=== PATIENT | female | born 1965 ===

== ENCOUNTER 2016-05-25 17:02 | Inpatient (IN) | payer BC, OTHER ==
[~2016-05-25] VITALS: Ht 165.1 cm; Wt 57.6 kg
[2016-05-27] MEDS ORDERED: THIAMINE HCL 200 MG/2 ML VIAL IM ONE (12:30)
[2016-05-27] MEDS ORDERED: LORAZEPAM 2 MG/1 ML VIAL IM PRN (12:30)
[2016-05-27] MEDS ORDERED: DICYCLOMINE HCL 20 MG TABLET PO PRN (12:30)
[2016-05-27] MEDS ORDERED: MIRALAX 17 GM POWD.PACK PO PRN (12:30)
[2016-05-27] MEDS ORDERED: ONDANSETRON ODT 4 MG TAB.RAPDIS SL PRN (12:30)
[2016-05-27] MEDS ORDERED: MAG HYDROX/AL HYDROX/SIMETH 30 ML LIQUID UDC PO PRN (12:30)
[2016-05-27] MEDS ORDERED: LORAZEPAM 1 MG TABLET PO PRN ×2 (12:30)
[2016-05-27] MEDS ORDERED: ACETAMINOPHEN 325 MG TABLET PO PRN (12:30)
[2016-05-27] MEDS ORDERED: LOPERAMIDE HCL 2 MG CAPSULE PO PRN ×2 (12:30)
[2016-05-27] MEDS ORDERED: MAGNESIUM HYDROXIDE 30 ML LIQUID UDC PO PRN (12:30)
[2016-05-27 13:10] VITALS: BP 97/66
[2016-05-27 13:31] LABS: BASOPHILS % (AUTO) 0.5 % (0.0-2.0); EOSINOPHILS # (AUTO) 0.1 K/uL (0.0-0.7); LYMPHOCYTES # (AUTO) 1.1 K/uL (0.8-4.8); MONOCYTES # (AUTO) 0.3 K/uL (0.1-1.30)
[2016-05-27 13:32] LABS: EOSINOPHILS % (AUTO) 1.7 % (0.0-7.0); HEMATOCRIT 31.6 % (37.0-47.0); HEMOGLOBIN 10.3 g/dL (12.0-16.0); LYMPHOCYTES % (AUTO) 21.3 % (20.5-51.5); MEAN CORPUSCULAR HEMOGLOBIN 28.9 uug (27.0-31.0); MEAN CORPUSCULAR HGB CONC 33 g/dL (32.0-37.0); MEAN CORPUSCULAR VOLUME 88.6 fL (81.0-99.0); MONOCYTES % (AUTO) 5.7 % (0.0-11.0); NEUTROPHILS # (AUTO) 3.7 K/uL (1.8-8.9); NEUTROPHILS % (AUTO) 70.8 % (38.5-71.5); PLATELET COUNT (AUTO) 328 K/uL (150-450); RED BLOOD CELL COUNT(AUTO) 3.57 MIL/uL (4.20-5.40); RED CELL DISTRIBUTION WIDTH 15.4 % (11.5-14.5); WHITE BLOOD COUNT (AUTO) 5.2 K/uL (4.0-11.2)
[2016-05-27 13:51] LABS: ALBUMIN 3.1 g/dL (3.4-5.0); BILIRUBIN,TOTAL 0.2 mg/dL (0.2-1.0); CALCIUM 8.2 mg/dL (8.5-10.1); CREATININE 0.7 mg/dL (0.6-1.3); MAGNESIUM 1.8 mg/dL (1.8-2.4); POTASSIUM 3.9 mmol/L (3.5-5.1); TOTAL PROTEIN, SERUM 6.1 g/dL (6.4-8.2)
[2016-05-27 13:56] LABS: *AMPHETAMINE, URINE POSITIVE (NEGATIVE); *BARBITURATE, URINE NEGATIVE (NEGATIVE); *CANNABINOID, URINE POSITIVE (NEGATIVE); *COCCAINE, URINE NEGATIVE (NEGATIVE); *OPIATE, URINE NEGATIVE (NEGATIVE); *PHENCYCLIDINE SCREEN,URINE NEGATIVE (NEGATIVE)
[2016-05-27 13:59] LABS: THYROID STIMULATING HORMONE 0.151 mIU/mL (0.358-3.740)
[2016-05-27] MEDS: FOLIC ACID 1 MG TABLET PO SCH (14:00)
[2016-05-27 14:09] LABS: HIV-1 p24 ANTIGEN NON REACTIVE (NONREACTIVE); HIV-1/2 ANTIBODY NON REACTIVE (NONREACTIVE)
--- NOTE | 2016-05-27 14:30 | NUR ---
ADMISSION NOTE Pt is a 51 yr old female, presenting herself to [facility] for alcohol use. Pt appears to be highly intoxicated upon admission, slurring her words and unable to stay awake. Pt was accompanied by her during intake. Per , Pt drank 400cc of Vodka and consumed an marijuana "edible" before arriving. Pt was assessed by Dr. Jorgensen and Nurse. Pt is alert to person, place, time and situation but thought process is delayed. Per Dr. Jorgensen, will have pt on 1:1 for unsteady gait. Pt arrived on the unit at 1238. Body check was complete. Pt is observed with 2 dry scabs on right lower leg. No treatment is necessary. No picture was taken. VS were WNL. Pt is full code, Vegan diet and NKA. Pt reports of PMH of Depression, Anxiety and Gastric Bypass, and Right arm Fx. Pt was not able to recall other PMH due to increase intoxication. Pt denies any Hx of Seizures. Pt denies any PCP. No home medication was brought from home. Pt was not able to verbalize details of substance use due to increase intoxication. Per pt's , States she been drinking daily for 11 years but has increased to 750ml of vodka daily for the past month. Per , pt last drank on 05/27/16 and consumed 400cc of vodka prior to coming into intake. Per pt's , she would consume marijuana "edibles". Pt states of taking "edibles occasionally". Per , last use was on 05/27/16, Pt consumed an marijuana "edible" prior to admission". Urine Drug screen was positive for Amphetamines and Benzo. 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 Pt was unable to state first use or amount taking. Pt states, "can not recall". Pt states of using Adderall 20mg PO a day for the past 5 years. Last use was on 05/25/16, pt states of taking 20mg PO. Pt is unable to complete admission assessment during this time due to increase intoxication. Dr. Jorgensen is aware. Pt remains on 1:1 for unsteady gait. Pt is to start on 5 day Ativan taper on 4/2/17. New order was faxed over to pharmacy. Will continue to monitor and continue with admission assessment. Addendum: 05/27/16 at 1826 by CLYDE WIGGINS LVN CLARIFICATION pt is noted with 2 dry scabs on left lower leg.
[2016-05-27 16:00] VITALS: BP 120/77
[2016-05-27] MEDS ORDERED: GABAPENTIN 300 MG CAPSULE PO SCH (17:00)
[2016-05-27] MEDS: HYDROXYZINE PAMOATE 25 MG CAPSULE PO PRN (17:03)
[2016-05-27] MEDS: IBUPROFEN 400 MG TABLET PO PRN (17:03)
--- NOTE | 2016-05-27 17:03 | NUR ---
PRN'S MEDICATION GIVEN Pt c/o right arm pain and mild anxiety. Vistaril 50mg PO PRN and Motrin 400mg PO PRN was given as ordered. Medication so well. Will continue to monitor.
--- NOTE | 2016-05-27 18:33 | NUR ---
CLARIFICATION Pt stated of first using Xanax in 2003 and was prescribed 0.25mg. Pt stated within 9 months she was consuming 30tabs of 0.25mg of Xanax daily. Per pt, went into rehab for 23 days. Pt stated she would now occasionally take Xanax prior to surgical procedures done on her right hand and stated her would control the dose. Pt stated, her gave her 2 tabs of 0.25mg on 05/27/16 prior to intake for anxiety. Dr. Jorgensen is made aware.
--- NOTE | 2016-05-27 19:10 | NUR ---
END OF SHIFT NOTE Pt is a 51 yr old female, AA&Ox3. Pt was admitted for ETOH Dependence and will start on 5 day Ativan taper on 05/28/16. Pt received Motrin PRN and Vistaril 50mg at 1703 for pain and anxiety. Medication was effective. Pt is on fall and seizure precautions. Pt remains on 1:1 for unsteady gait. Last CIWA score was 3 at 1600. No acute distress noted. Safety precautions observed. Call light is within reach.
[2016-05-27 20:00] VITALS: BP 115/76
--- NOTE | 2016-05-27 20:00 | NUR ---
1999 Patient received sleeping soundly in low semi-dao's position of comfort. Patient aroused for nurse assess and vital signs. Patient respond to nurse's greeting and introduction, with very drowsy, soft, delayed, "Hi, I'm okay". Patient unable to keep eyes open for very long, while nurse is speaking to her or asking her questions. Patient is oriented to person, personal situation and vaguely to place. Patient reoriented to day, date and time. Patient's color is pink and her skin is warm, dry and intact. Her lung sounds are clear bilaterally and active bowel sounds are noted X 4 abdominal Quads, per auscultation. Patient can move all her extremities fully WNL, though slowly. Patient denies any pain or other discomforts and she voices no requests or c/o anything at this time. Vital signs are: 98-78-14 115/76, O2 Sat 98%, CIWA 2. Sips fluids taken. 1 to 1 staff at bedside for patient's safety. Fall/Seizure precautions continue. Patient was admitted today for: Alcohol,Xanax, Adderall and Marijuana withdrawal and she will be starting a 5-Day Ativan medication taper tomorrow per D.O. Bed is locked and in lowest position, bed rails are up X 2 and call light at patient's right hand. Will continue to monitor.
[2016-05-27] MEDS: GABAPENTIN 300 MG CAPSULE PO SCH (20:34)
[2016-05-27] MEDS ORDERED: GABAPENTIN 300 MG CAPSULE ONE (20:34)
[2016-05-28] VITALS (7 sets, daily range): BP systolic 121–147; BP diastolic 77–104
[2016-05-28] MEDS: IBUPROFEN 400 MG TABLET PO PRN (05:55)
--- NOTE | 2016-05-28 05:55 | NUR ---
PRN MEDICATION: Prn Motrin 400 mg p.o. given per patient's request for her c/o right jaw discomfort, 5/10 pain scale.
[2016-05-28] MEDS: HYDROXYZINE PAMOATE 25 MG CAPSULE PO PRN (05:56)
--- NOTE | 2016-05-28 05:56 | NUR ---
PRN MEDICATION: Prn Vistaril 50 mg p.o. given per patient's c/o increasing anxiety.
--- NOTE | 2016-05-28 06:30 | NUR ---
0630 Patient slept a total of 7 hours and she had 2 voids and no stools at bathroom. Total intake was 827 ml p.o. Patient more awake and alert when out of bed, though she still required minimal assist to bathroom. Patient took fluids ad vikash and had vegan snacks this shift and she went to [facility] for cigarettes via wheelchair with 1 to 1 staff. Prn medications given noted separately per floor protocol. V/SS afebrile, COWS 2. No blood draw or B/P to be done on right arm due to extensive surgical work done previously on this arm. Patient is presently resting comfortably with eyes closed and respirations regular, unlabored at 14. Patient is in stable condition at this time.
--- NOTE | 2016-05-28 06:56 | NUR ---
REASSESSMENT PRN MEDICATIONS: Patient is resting comfortably with eyes closed and respirations quiet, even, unlabored at 14.
--- NOTE | 2016-05-28 07:50 | NUR ---
START OF SHIFT Rcvd client in bed, she sounds asleep, easy to arouse, RR 16. Sitter at bedside for fall precautions due to unsteady gait, will continue to monitor. She is a 51 yr old female admitted to [facility] for alcohol withdrawal. She is placed on 5 day Ativan taper to start today at 0900. She drank 400cc of Vodka and consumed an marijuana "edible" on 05/27/16 before admission @ 1238. 2 dry scabs on right lower leg. No treatment is necessary. Client is full code, Vegan diet and NKA. She reports of PMH of Depression, Anxiety. Past surgical history of Gastric Bypass, and Right arm Fx. She denied any Hx of Seizures. She consumes 750ml of vodka daily for the past month, last consumed 400cc of vodka @ 1100 05/27/16. She consumed marijuana "edibles". last use was on 05/27/16. 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 Adderall 20mg PO a day for the past 5 years. Last use was on 05/25/16, pt states of taking 20mg PO. Fall and seizure precautions./ Bed in lowest position, side rails x 2 up/padded. Call light within reach.
[2016-05-28] MEDS: DOCUSATE SODIUM 250 MG CAPSULE PO SCH (08:44)
[2016-05-28] MEDS: FOLIC ACID 1 MG TABLET PO SCH (08:44)
[2016-05-28] MEDS: GABAPENTIN 300 MG CAPSULE PO SCH ×3 (08:45→21:01)
[2016-05-28] MEDS: LORAZEPAM 1 MG TABLET PO SCH ×4 (08:45→20:58)
[2016-05-28] MEDS: MULTIVITAMINS,THERAPEUTIC TABLET PO SCH (08:45)
[2016-05-28] MEDS: THIAMINE HCL 100 MG TABLET PO SCH (08:45)
[2016-05-28] MEDS ORDERED: 5 DAY TAPER OF LORAZEPAM -SERENITY PROTOCOL PO PRN (09:00)
[2016-05-28] MEDS ORDERED: TUBERCULIN,PURIF.PROT.DERIV. 5 TU/0.1 ML TEST ID ONE (09:00)
--- NOTE | 2016-05-28 15:25 | NUR ---
nursing notes Gabapentin 300mg PO held d/t sedation, notified.
--- NOTE | 2016-05-28 19:31 | NUR ---
END OF SHIFT Endorsed to incoming nurse, client in bed, she sounds asleep, easy to arouse, RR 16. Sitter at bedside for fall precautions due to unsteady gait.Last CIWA 7. She is on Ativan taper, tolerating well. She is a 51 yr old female admitted to [facility] for alcohol withdrawal. She drank 400cc of Vodka and consumed an marijuana "edible" on 05/27/16 before admission @ 1238. 2 dry scabs on right lower leg. No treatment is necessary. Client is full code, Vegan diet and NKA. She reports of PMH of Depression, Anxiety. Past surgical history of Gastric Bypass, and Right arm Fx. She denied any Hx of Seizures. She consumes 750ml of vodka daily for the past month, last consumed 400cc of vodka @ 1100 05/27/16. She consumed marijuana "edibles". last use was on 05/27/16. 4 tabs of Xanax on 05/26/16 to [employer] with anxiety. Adderall 20mg PO a day for the past 5 years. Last use was on 05/25/16, pt states of taking 20mg PO. Fall and seizure precautions./ Bed in lowest position, side rails x 2 up/padded. Call light within reach.
--- NOTE | 2016-05-28 19:55 | NUR ---
START OF SHIFT Received report from day shift nurse. Pt is lying in bed resting with a 1:[address] for safety due to unsteady gait related to ETOH withdrawal. She is a 51 yo female admitted to [facility] on 05/27 for ETOH and BZD dependence with a h/o adderall and marijuana use. She is A&O x3 and ambulatory with assistance. She uses a wheelchair as needed. NKA, full code status, and on a vegetarian diet. She has a PMH of gastric bypass, right arm fracture with multiple surgeries, anxiety, and depression. On admission she admitted to using ETOH 375-750mL per day for 1 month, xanax 0.25mg per day occasionally, adderall 20mg/day, and marijuana 2 joints occasionally. She started a 5 day Ativan taper today. It is working well to manage withdrawal symptoms. She is slightly drowsy and answers questions appropriately. Her skin is moist and she has mild tremors. Fall and seizure precautions in place. Bed is down with call light in reach.
[2016-05-29] VITALS (7 sets, daily range): BP systolic 127–141; BP diastolic 73–96
--- NOTE | 2016-05-29 07:27 | NUR ---
END OF SHIFT Report provided to day shift nurse. Pt is lying in bed resting with a 1:[address] for safety. She is a 51 yo female admitted to [facility] on 05/27 for ETOH and BZD dependence with a h/o adderall and marijuana use. She is A&O x3 and ambulatory. Her gait is unsteady due to withdrawals. She uses a wheelchair as needed. NKA, full code status, and on a vegetarian diet. She has a PMH of gastric bypass, right arm fracture with multiple surgeries, anxiety, and depression. On admission she admitted to using ETOH 375-750mL per day for 1 month, xanax 0.25mg per day occasionally, adderall 20mg/day, and marijuana 2 joints occasionally. She started a 5 day Ativan taper yesterday. No PRN medications administered. Last CIWA was 3. She drank 527mL and slept for 10 hours. Fall and seizure precautions in place. Bed is down with call light in reach.
--- NOTE | 2016-05-29 07:50 | NUR ---
START OF SHIFT NOTE Pt is a 51 yr old female, AA&Ox3. Pt was admitted on 05/27/16 for ETOH Dependence and is on 5 day Ativan taper. Pt is full code, Vegan diet and NKA. Pt reports of PMH of Anxiety, Depression, Gastric bypass and right arm fx. No PRN's were given during the night. Pt slept for 10 hrs. Pt remains on 1:1 for unsteady gait. Pt is in bed resting with respirations even and unlabored. No acute distress noted. Skin is intact, warm and dry to touch. Fine tremor are seen. Pt denies any n/v. Pt is c/o lower back pain 08/05. Encouraged increase fluid intake. Will f/u will eMAR. Pt is on fall and seizure precautions. Safety precautions observed. Call light is within reach.
[2016-05-29] MEDS: THIAMINE HCL 100 MG TABLET PO SCH (08:43)
[2016-05-29] MEDS: MULTIVITAMINS,THERAPEUTIC TABLET PO SCH (08:43)
[2016-05-29] MEDS: FOLIC ACID 1 MG TABLET PO SCH (08:43)
[2016-05-29] MEDS: GABAPENTIN 300 MG CAPSULE PO SCH ×3 (08:43→20:03)
[2016-05-29] MEDS: DOCUSATE SODIUM 250 MG CAPSULE PO SCH (08:43)
[2016-05-29] MEDS: LORAZEPAM 1 MG TABLET PO SCH ×3 (08:44→20:03)
--- NOTE | 2016-05-29 08:45 | NUR ---
ATIVAN HELD Ativan 2mg PO scheduled at 0900 was held due to pt is too sedated. Pt is unable to keep eyes open and slurring her words. Pt remains on 1:1 for unsteady gait. Will continue to monitor.
[2016-05-29] MEDS ORDERED: AMPH20CA3 PO (12:52)
--- NOTE | 2016-05-29 14:20 | NUR ---
ZOFRAN PRN GIVEN Pt c/o nausea. No episodes of vomiting was reported. Zofran 4mg SL PRN was given. Encouraged increase fluid intake. Pt is observed eating lunch and so well. Will continue to monitor.
--- NOTE | 2016-05-29 15:00 | NUR ---
ATIVAN HELD Ativan 2mg as scheduled at 1500 was held due to too sedated and unsteady gait. Pt is observed having difficulty staying awake and nodding in and out. Pt remains 1:1 for unsteady gait. Call light is within reach. Will continue to monitor.
--- NOTE | 2016-05-29 15:20 | NUR ---
PRN RE-ASSESSMENT Zofran PRN was effective. No episodes of nausea or vomiting. Encouraged increase fluid intake. Will continue to monitor.
[2016-05-29] MEDS: HYDROXYZINE PAMOATE 25 MG CAPSULE PO PRN (16:23)
--- NOTE | 2016-05-29 16:23 | NUR ---
VISTARIL PRN GIVEN Pt is c/o anxiety. Vistaril 50mg PO PRN was given as ordered. Medication so well. Encouraged increase fluid intake. Will continue to monitor.
--- NOTE | 2016-05-29 17:23 | NUR ---
VISTARIL PRN RE-ASSESSMENT Vistaril PRN was mildly effective. Pt continue to be observed with episodes of crying. Dr. Martinez is made aware with new order for Seroquel 25mg Q6HPRN. New order was initiated by Dr. Martinez. Will continue to f/u
[2016-05-29] MEDS: QUETIAPINE FUMARATE 25 MG TABLET PO PRN (17:55)
--- NOTE | 2016-05-29 17:55 | NUR ---
SEROQUEL PRN GIVEN Pt continued to be observed with episodes of crying. Pt refused to talk about her feelings. Seroquel 25mg PO PRN was given as ordered. Medication so well. Will continue to monitor.
--- NOTE | 2016-05-29 19:03 | NUR ---
END OF SHIFT NOTE Pt is a 51 yr old female, AA&Ox3. Pt was admitted on 05/27/16 for ETOH Dependence and is on 5 day Ativan taper. Pt is full code, Vegan diet and NKA. Pt reports of PMH of Anxiety, Depression, Gastric bypass and right arm fx. Pt was observed with increase drowsiness in the morning. Ativan 2mg PO as scheduled was held at 0900 and 1500 due to too sedated. MD was made aware. Pt was given Vistaril PRN and Seroquel PRN for episode of crying and anxiety. Medications was effective. Pt is currently in bed resting. Respirations even and unlabored. Pt remains on 1:1 for unsteady gait. Skin is intact, warm and dry to touch. Fine tremor are seen. Pt denies any n/v. Encouraged increase fluid intake. Pt is on fall and seizure precautions. Safety precautions observed. Call light is within reach.
--- NOTE | 2016-05-29 19:55 | NUR ---
START OF SHIFT Received report from day shift nurse. Pt is lying in bed resting with a 1:[address] for safety due to unsteady gait. She is a 51 yo female admitted to [facility] on 05/27 for ETOH and BZD dependence with a h/o adderall and marijuana use. She started a 5 day Ativan taper on 05/28. Pt is A&O x3 and ambulatory with assistance due to unsteady gait r/t ETOH withdrawal. She uses a wheelchair as needed. NKA, full code status, and on a vegetarian diet. She has a PMH of gastric bypass, right arm fracture with multiple surgeries, anxiety, and depression. On admission she admitted to using ETOH 375-750mL per day for 1 month, xanax 0.25mg per day occasionally, adderall 20mg/day, and marijuana 2 joints occasionally. Pt was given Seroquel on day shift and is relaxed in bed. She is responsive to verbal stimulation. Fall and seizure precautions in place. She reports anxiety Bed is down with call light in reach.
[2016-05-29] MEDS: IBUPROFEN 400 MG TABLET PO PRN (20:07)
--- NOTE | 2016-05-29 20:08 | NUR ---
PRN Motrin administration Pt reported headache /. PRN Motrin administered.
--- NOTE | 2016-05-29 21:08 | NUR ---
PRN Motrin reassessment PRN Motrin somewhat effective. Pt reports some relief of headache.
[2016-05-29] MEDS: PANTOPRAZOLE SODIUM 40 MG TABLET.DR PO SCH (22:30)
[2016-05-29] MEDS: diphenhydrAMINE 50 MG CAPSULE PO PRN (22:30)
[2016-05-29] MEDS: CLONIDINE HCL 0.1 MG TABLET PO PRN (22:31)
--- NOTE | 2016-05-29 22:33 | NUR ---
PRN Clonidine, Tylenol, and Benadryl Pt c/o feeling anxious, unable to relax, headache, and unable to fall asleep. CIWA score 6. PRN Clonidine, Tylenol, and Benadryl administered.
--- NOTE | 2016-05-29 23:33 | NUR ---
PRN Clonidine, Tylenol, and Benadryl reassessment PRN Clonidine, Tylenol, and Benadryl effective. Pt is lying in bed resting with eyes closed. Respirations even and unlabored. Bed is down with call light in reach.
--- NOTE | 2016-05-30 | NUR ---
0000 Vitals and CIWA deferred Pt refused to be woken for 0000 Vitals. Respirations even and unlabored. 1:[address] for safety. Bed is down with call light in reach.
--- NOTE | 2016-05-30 04:00 | NUR ---
0400 Vitals and CIWA deferred Pt refused to be woken for 0400 Vitals. Respirations even and unlabored. 1:[address] for safety. Bed is down with call light in reach.
[2016-05-30 06:06] LABS: HCV AB <0.1 s/co ratio (0.0-0.9); HEPATITIS B CORE AB, IgM Negative (Negative); HEPATITIS B SURFACE AG Negative (Negative)
--- NOTE | 2016-05-30 07:16 | NUR ---
END OF SHIFT Report provided to day shift nurse. Pt is lying in bed resting with a 1:[address] for safety due to unsteady gait. She is a 51 yo female admitted to [facility] on 05/27 for ETOH and BZD dependence with a h/o adderall and marijuana use. She started a 5 day Ativan taper on 05/28. Pt is A&O x3 and ambulatory with assistance due to unsteady gait r/t ETOH withdrawal. She uses a wheelchair as needed. NKA, full code status, and on a vegetarian diet. She has a PMH of gastric bypass, right arm fracture with multiple surgeries, anxiety, and depression. On admission she admitted to using ETOH 375-750mL per day for 1 month, xanax 0.25mg per day occasionally, adderall 20mg/day, and marijuana 2 joints occasionally. Pt reported feeling anxious and was mildly agitated. She reported a headache. PRN Clonidine, Benadryl, Motrin, and Tylenol administered. Last CIWA was 6. She drank 880mL and slept 6 hours. Fall and seizure precautions in place. She reports anxiety Bed is down with call light in reach.
--- NOTE | 2016-05-30 07:30 | NUR ---
Start of shift note; Received report from night nurse. Patient is a 51 y/o female admitted on 05/27/16 for ETOH dependence. Patient reported past medical history of depression, anxiety, gastric bypass, right arm fracture with multiple surgeries. Patient is on a full code status, NKA, vegan diet. Patient was placed on 5 day Ativan taper. Patient remained on 1:1 supervision for unsteady gait. Patient's last CIWA is 6. All safety measures secured. Will continue to monitor patient.
[2016-05-30] MEDS: PANTOPRAZOLE SODIUM 40 MG TABLET.DR PO SCH (07:47)
[2016-05-30] MEDS: IBUPROFEN 400 MG TABLET PO PRN ×2 (07:49→20:47)
--- NOTE | 2016-05-30 07:50 | NUR ---
PRN Motrin Pt c/o headache. PRN Motrin administered.
[2016-05-30 08:00] VITALS: BP 130/77
--- NOTE | 2016-05-30 08:50 | NUR ---
Re-assessment; PRN Motrin is effective. Patient denies headache at this time.
[2016-05-30] MEDS ORDERED: LORAZEPAM 1 MG TABLET PO SCH (09:00)
[2016-05-30] MEDS: LORAZEPAM 1 MG TABLET PO SCH ×3 (09:10→20:38)
[2016-05-30] MEDS: DOCUSATE SODIUM 250 MG CAPSULE PO SCH ×2 (09:11→23:10)
[2016-05-30] MEDS: FOLIC ACID 1 MG TABLET PO SCH (09:11)
[2016-05-30] MEDS: THIAMINE HCL 100 MG TABLET PO SCH (09:11)
[2016-05-30] MEDS: MULTIVITAMINS,THERAPEUTIC TABLET PO SCH (09:11)
[2016-05-30] MEDS: GABAPENTIN 300 MG CAPSULE PO SCH ×2 (09:21→15:00)
[2016-05-30] MEDS: HYDROXYZINE PAMOATE 25 MG CAPSULE PO PRN ×2 (11:15→19:25)
--- NOTE | 2016-05-30 11:18 | NUR ---
PRN medication; Patient noted to be very anxious, crying stating "everything is wrong". Redirected patient as needed. Patient denies suicidal/homicidal ideations. PRN Vistaril 50mg PO given for agitation/anxiety. MD notified. Will continue to monitor patient. Addendum: 05/30/16 at 1129 by HERIBERTO TSANG LVN Psychiatrist made aware of patient's behavior and episodes of depression. Patient to be evaluated during MD rounds. Patient remains on 1:1 supervision.
--- NOTE | 2016-05-30 11:42 | NUR ---
Psychiatrist communication; MD is aware of patient's inappropriate behavior, depression, mood swings episodes. MD ordered Seroquel 25mg TID PO to start now, Hold if patient is sedated. MD unable to enter orders on [facility] at this time. Order carried out. Will continue to monitor patient.
[2016-05-30] MEDS ORDERED: QUETIAPINE FUMARATE 25 MG TABLET PO PRN (11:45)
[2016-05-30 12:00] VITALS: BP 140/98
[2016-05-30] MEDS: QUETIAPINE FUMARATE 25 MG TABLET PO SCH ×3 (12:01→17:32)
[2016-05-30] MEDS ORDERED: ESCI10TA PO ×2 (12:06→12:12)
[2016-05-30] MEDS ORDERED: BUPR300T52 PO ×2 (12:06→12:12)
--- NOTE | 2016-05-30 12:23 | NUR ---
Re-assessment; PRN Vistaril is effective. Patient is calm and comfortable at this time. Patient was also evaluated by therapist. Will closely monitor patient.
--- NOTE | 2016-05-30 15:22 | NUR ---
Nurse note; Patient appeared to be sedated,responsive to tactile/verbal stimuli, respirations even and unlabored.Patient's 1500 medications held d/t sedation. Will closely monitor patient.
[2016-05-30 16:00] VITALS: BP 126/85
--- NOTE | 2016-05-30 18:14 | NUR ---
end of shift note; Patient is AOX4. Patient is a 51 y/o female admitted on 05/27/16 for ETOH dependence. Patient reported past medical history of depression, anxiety, gastric bypass, right arm fracture with multiple surgeries. Patient is on a full code status, NKA, vegan diet. Patient was placed on 5 day Ativan taper, no adverse reactions noted. Patient remained on 1:1 supervision for unsteady gait. Patient's last CIWA is 5. Patient remained complaint with treatment plans. Medications were effective in reducing withdrawal symptoms. All safety measures secured. met all needs.
--- NOTE | 2016-05-30 18:44 | NUR ---
START OF SHIFT Patient endorsed by outgoing day shift nurse. Report received. Patient is a 51 years old female admitted to [facility] on 05/27/16 for Benzo/Alcohol/Adderall/Marijuana Dependence, placed on 5 day Ativan taper started on 05/28/16/. NKA, Full Code, Vegan Diet, Fall and Seizures Precautions. Patient denied history of Seizures. Past Medical History: Anxiety Disorder, Depression Disorder, Tobacco Dependence, substance Dependence. Past Surgery History: Gastric Bypass; Right Arm Fracture: Multiple Surgeries. Substance Use History: Xanax: "0.25 mg occasionally". Last dose of "0.25 mg 2 tabs - on 05/27/2016". ETOH: "Vodka since March, 375-750 ml daily. Last amount of 400 ml was 05/27/16". Adderall: " 2 mg daily since 2011. Last dose of 20 mg PO - 05/25/2016". Marijuana "occasionally 2 joints since 2005." 05/27/16: was taken " one edible". Past Hospitalization/Treatment was in the "[facility]" in the [place] (2015).Upon assessment patient is Alert and Oriented x4; 1:1 sitter at bedside for unsteady gait. CIWA 7. Patient presented with mild anxiety, agitation, nervousness, tremors that can felt, sweating. VS: T:98'3; HR: 117; RR:19; BP: 145/85; Room Air O2Sat: 98%; Generalized Pain Level: 5/10. Breathing is even and unlabored. Patient denied SOB and chest pain. Lungs are clear bilaterally. Bowel Sounds is active in all x4 quadrants. Abdomen is soft and non-distended. Last BM's today, 05/30/16 "afternoon". Skin is warm and moist by touch: dry scabs on the Left Lower Leg. Patient remained compliant with medication, diet regime, and treatment plan. Safety measures on the place by hospital protocol: Call light within reach, bed in the lowest position and locked, bed rails up x2. Will continue to monitor.
[2016-05-30] MEDS: CLONIDINE HCL 0.1 MG TABLET PO PRN (19:25)
--- NOTE | 2016-05-30 19:25 | NUR ---
Patient c/ increased anxiety, and unable to relax. Patient 's assessed. Patient is obviously anxious. VS taken: T: 98'3; BP: 145/85; HR: 117; RR: 19; Generalized Pain Level:5/10. PRN Vistaril PO and PRN Clonidine PO was discussed with patient. Patient 's educated for actions, adverse reactions, and Side Effects of Vistaril and Clonidine. Patient returned her knowledge back by verbalizing understanding.Safety measures on the place by hospital protocol: Call light within reach, bed in the lowest position and locked, bed rails up x2. Will continue to monitor. Addendum: 05/30/16 at 2208 by JJ RIDDLE RN PRN VISTARIL PO 50 MG 2 CAPS, AND CLONIDINE PO 0.1 MG PO ADMINISTRATED ORDERED WITH FULL GLASS OF WATER. PATIENT TOLERATED WELL.
[2016-05-30 20:00] VITALS: BP 145/85
--- NOTE | 2016-05-30 20:25 | NUR ---
REASSESSMENT Patient was reassessed. Patient said: "PRN Vistaril PO and PRN Clonidine PO were effective, and she is felling well now".1:1 sitter at bedside for unsteady gait. Safety measures on the place by hospital protocol: Call light within reach, bed in the lowest position and locked, bed rails up x2. Will continue to monitor.
[2016-05-30] MEDS: QUETIAPINE FUMARATE 25 MG TABLET PO PRN (20:47)
--- NOTE | 2016-05-30 20:47 | NUR ---
PRN MOTRIN PO AND PRN SEROQUEL PO ADMINISTRATION Patient c/o headache 5/10 and increased agitation. Patient was assessed. PRN Motrin PO and PRN Seroquel discussed with patient. Patient was educated for actions, adverse reactions, and side effects of Motrin and Seroquel. Patient returned her knowledge back by verbalizing understanding. PRN Motrin PO and PRN Seroquel PO administrated as ordered. Patient tolerated well. Safety measures on the place by hospital protocol: Call light within reach, bed in the lowest position and locked, bed rails up x2. Will continue to monitor.
[2016-05-30] MEDS ORDERED: GABAPENTIN 300 MG CAPSULE PO SCH (21:00)
--- NOTE | 2016-05-30 21:47 | NUR ---
REASSESSMENT Patient reassessed. Patient denied headache:"0/10". PRN Motrin was effective.Patiien is not aggitated now. PRN Seroquel was effective. 1:1 sitter for unstable gate with patient.Safety measures on the place by hospital protocol: Call light within reach, bed in the lowest position and locked, bed rails up x2. Will continue to monitor.
[2016-05-30] MEDS: diphenhydrAMINE 50 MG CAPSULE PO PRN (22:54)
--- NOTE | 2016-05-30 22:54 | NUR ---
PRN BENADRYL PO AND PRN BENTYL ADMINISTRATION PRN BENADRYL PO AND PRN BENTYL ADMINISTRATED ORDERED. PATIENT TOLERATED WELL 1:1 SITTER AT BEDSIDE FOR UNSTEADY GATE. WILL CONTINUE TO MONITOR CLOSELY.
--- NOTE | 2016-05-30 23:10 | NUR ---
PRN MAGNESIUM SULFATE PO AND PRN DOCUSATE SODIUM ADMINISTRATION PRN Milk of Magnesium PO and PRN Docusate Sodium PO administrated. Will continue to monitor closely.1:1 sitter at bedside for unsteady gait Safety measures on the place by hospital protocol: Call light within reach, bed in the lowest position and locked, bed rails up x2. Will continue to monitor.
--- NOTE | 2016-05-30 23:25 | NUR ---
PRN ATIVAN AND PRN BENADRYL PRN ADMINISTRATION Patient c/o increased anxiety and insomnia. Patient 's assessed. CIWA 7:Patient presented with anxiety, nervousness, tremors that can felt, sweating. VS: T: 97''9; HR: 109; RR: 19; O2Sat: 100%;Generalized Pain 5/10. PRN Ativan PO and PRN Benadryl PO administrated as ordered. Patient tolerated well. 1:1 sitter at bedside for unsteady gait. Safety measures on the place by hospital protocol: Call light within reach, bed in the lowest position and locked, bed rails up x2. Will continue to monitor closely.
[2016-05-30] MEDS ORDERED: diphenhydrAMINE 50 MG CAPSULE PO ONE (23:30)
[2016-05-30] MEDS ORDERED: LORAZEPAM 1 MG TABLET PO ONE (23:30)
[2016-05-30] MEDS ORDERED: LORAZEPAM 1 MG TABLET ONE (23:32)
[2016-05-30] MEDS ORDERED: diphenhydrAMINE 50 MG CAPSULE ONE (23:32)
--- NOTE | 2016-05-30 23:54 | NUR ---
REASSESSMENT Patient is sleeping. PRN Bentyl PO and PRN Benadryl PO was effective.1:1 sitter at bedside for unsteady gait. Safety measures on the place by hospital protocol: Call light within reach, bed in the lowest position and locked, bed rails up x2. Will continue to monitor.
--- NOTE | 2016-05-31 00:10 | NUR ---
REASSESSMENT Patient sleeping. RR: 14. Breathing unlabored and even.1:1 sitter at bedside for unsteady gait. Safety measures on the place by hospital protocol: Call light within reach, bed in the lowest position and locked, bed rails up x2. Will continue to monitor.
--- NOTE | 2016-05-31 00:25 | NUR ---
REASSESSMENT Patient is sleeping.Breathing is even and unlabored. RR:14. PRN Ativan PO and PRN Benadryl PO was effective. 1:1 sitter at bedside for unsteady gait.Safety measures on the place by hospital protocol: Call light within reach, bed in the lowest position and locked, bed rails up x2. Will continue to monitor closely.
[2016-05-31 00:28] VITALS: BP 126/84
--- NOTE | 2016-05-31 04:00 | NUR ---
VS REFUSED AND CIWA/COWS DEFERRED Patient refused to be woken up for 04:00 VS. CIWA/COWS deferred d/t patient sleeping to assess while patient is awake. Safety measures on place by hospital policy: Call light within reach; Bed in lowest position and locked; side rails up x2. Will continue to monitor.
[2016-05-31] MEDS: PANTOPRAZOLE SODIUM 40 MG TABLET.DR PO SCH (06:22)
--- NOTE | 2016-05-31 07:15 | NUR ---
END OF SHIFT Patient endorsed to day shift nurse. Report given. Patient is a 51 years old female admitted to [facility] on 05/27/16 for Benzo/Alcohol/Adderall/Marijuana Dependence, placed on 5 day Ativan taper started on 05/28/16/. NKA, Full Code, Vegan Diet, Fall and Seizures Precautions. Patient denied history of Seizures. Patient denied HI/SI. CIWA decreased from 7 to 5. Patient presented with mild anxiety, agitation, nervousness, tremors that can felt, sweating. VSWNL. Skin is warm and moist by touch: dry scabs on the Left Lower Leg. PRN Ativan PO, PRN Benadryl PO, PRN Bentyl PO; PRN Decussate Sodium PO, PRN Milk of Magnesia PO, PRN Motrin PO, and PRN Seroquel PO were effective. Patient slept 6,5 hours; Intake 835ml; Voided x 4; Stool x1. Patient remained compliant with medication, diet regime, and treatment plan. 1:1 sitter at bedside for unsteady gait. Safety measures on the place by hospital protocol: Call light within reach, bed in the lowest position and locked, bed rails up x2.
[2016-05-31 07:36] LABS: BASOPHILS # (AUTO) 0.1 K/uL (0.0-0.2); BASOPHILS % (AUTO) 1.4 % (0.0-2.0); EOSINOPHILS # (AUTO) 0.4 K/uL (0.0-0.7); EOSINOPHILS % (AUTO) 6.8 % (0.0-7.0); HEMATOCRIT 34.8 % (37.0-47.0); HEMOGLOBIN 11.4 g/dL (12.0-16.0); LYMPHOCYTES # (AUTO) 1.7 K/uL (0.8-4.8); LYMPHOCYTES % (AUTO) 26.3 % (20.5-51.5); MEAN CORPUSCULAR HEMOGLOBIN 29.1 uug (27.0-31.0); MEAN CORPUSCULAR HGB CONC 33 g/dL (32.0-37.0); MEAN CORPUSCULAR VOLUME 89.4 fL (81.0-99.0); MONOCYTES # (AUTO) 0.5 K/uL (0.1-1.30); NEUTROPHILS # (AUTO) 3.8 K/uL (1.8-8.9); NEUTROPHILS % (AUTO) 57.5 % (38.5-71.5); PLATELET COUNT (AUTO) 356 K/uL (150-450); RED CELL DISTRIBUTION WIDTH 15.2 % (11.5-14.5); WHITE BLOOD COUNT (AUTO) 6.5 K/uL (4.0-11.2)
--- NOTE | 2016-05-31 07:48 | NUR ---
Start of shift note; Received report from night nurse. Patient is a 51 y/o female admitted on 05/27/16 for ETOH dependence. Patient reported past medical history of depression, anxiety, gastric bypass, right arm fracture with multiple surgeries. Patient is on a full code status, NKA, vegan diet. Patient was placed on 5 day Ativan taper. Patient remained on 1:1 supervision for unsteady gait. Patient's last CIWA is 5.Patient slept for 6.5 hours. All safety measures secured. Will continue to monitor patient.
[2016-05-31 08:00] VITALS: BP 116/82
[2016-05-31 08:28] LABS: THYROID STIMULATING HORMONE 1.366 mIU/mL (0.358-3.740)
[2016-05-31 08:32] LABS: FOLIC ACID 16.5 NG/ML (8.6-58.9)
[2016-05-31] MEDS: ESCITALOPRAM OXALATE 10 MG TABLET PO SCH (08:48)
[2016-05-31] MEDS: QUETIAPINE FUMARATE 25 MG TABLET PO SCH ×3 (08:48→16:57)
[2016-05-31] MEDS: LORAZEPAM 1 MG TABLET PO SCH ×2 (08:48→21:07)
[2016-05-31] MEDS: FOLIC ACID 1 MG TABLET PO SCH (08:48)
[2016-05-31] MEDS: MULTIVITAMINS,THERAPEUTIC TABLET PO SCH (08:48)
[2016-05-31] MEDS: THIAMINE HCL 100 MG TABLET PO SCH (08:48)
[2016-05-31] MEDS ORDERED: LORAZEPAM 1 MG TABLET PO SCH (09:00)
[2016-05-31] MEDS ORDERED: GABAPENTIN 300 MG CAPSULE PO SCH (09:00)
[2016-05-31 09:40] LABS: CALCIUM 8.2 mg/dL (8.5-10.1); CREATININE 0.9 mg/dL (0.6-1.3); MAGNESIUM 1.9 mg/dL (1.8-2.4); PHOSPHOROUS 4.9 mg/dL (2.5-4.9); POTASSIUM 4.4 mmol/L (3.5-5.1)
[2016-05-31] MEDS: IBUPROFEN 400 MG TABLET PO PRN (11:06)
--- NOTE | 2016-05-31 11:06 | NUR ---
PRN medication; Patient is complaining of shoulder pain/headache, rated 7/10. PRN Motrin 400mg PO given for pain, will continue to monitor patient.
[2016-05-31 12:00] VITALS: BP 131/86
--- NOTE | 2016-05-31 12:10 | NUR ---
Re-assessment; Patient denies pain at this time. PRN medication is effective.
--- NOTE | 2016-05-31 14:30 | NUR ---
PRN medication; PRN Vistaril 50mg PO given for anxiety M/B patient pacing back and forth in the room. Will continue to monitor patient.
[2016-05-31] MEDS: GABAPENTIN 300 MG CAPSULE PO SCH ×2 (14:42→21:15)
[2016-05-31] MEDS: HYDROXYZINE PAMOATE 25 MG CAPSULE PO PRN ×2 (14:42→22:49)
--- NOTE | 2016-05-31 15:30 | NUR ---
Re-assessment; Patient is calm and comfortable at this time. PRN medication is effective.
[2016-05-31 16:00] VITALS: BP 118/68
--- NOTE | 2016-05-31 18:18 | NUR ---
end of shift note; Patient is AOX4. Patient is a 51 y/o female admitted on 05/27/16 for ETOH dependence. Patient reported past medical history of depression, anxiety, gastric bypass, right arm fracture with multiple surgeries. Patient is on a full code status, NKA, vegan diet. Patient was placed on 5 day Ativan taper, no adverse reactions noted. Patient noted to have steady gait, okayed to DC 1:1 sitter. Patient's last CIWA is 4. Patient remained complaint with treatment plans. Medications were effective in reducing withdrawal symptoms. All safety measures secured. met all needs.
--- NOTE | 2016-05-31 19:18 | NUR ---
START OF SHIFT Patient endorsed by outgoing day shift nurse. Report received. Patient is a 51 years old female admitted to [facility] on 05/27/16 for Benzo/Alcohol/Adderall/Marijuana Dependence, placed on 5 day Ativan taper started on 05/28/16/. NKA, Full Code, Vegan Diet, Fall and Seizures Precautions. Patient is alert and oriented x4, cooperative. Patient has steady gait now. No 1:1 sitter in the room now. CIWA 8: Patient presenting with mild anxiety, reports chills/flashing, mild diffuse discomfort, stomach cramps, tremors that can felt, no observe; obviously irritable/anxious. VS: T:98'0; HR: 93; RR:16; BP:155/97; Room Air O2Sat: 99%; Generalized Pain Level: 5/10. Breathing is even and unlabored. Patient denied SOB and chest pain. Lungs are clear bilaterally. Patient denied SOB/chest pain. Bowel Sounds is active in all x4 quadrants. Skin is warm and moist by touch: dry scabs on the Left Lower Leg. Patient remained compliant with medication, diet regime, and treatment plan. Safety measures on the place by hospital protocol: Call light within reach, bed in the lowest position and locked, bed rails up x2. Will continue to monitor.
[2016-05-31 20:00] VITALS: BP 155/97
[2016-05-31] MEDS: ASCORBIC ACID 250 MG TABLET PO SCH (21:07)
[2016-05-31] MEDS: FERROUS SULFATE 325 MG TABEC PO SCH (21:08)
[2016-05-31] MEDS: diphenhydrAMINE 50 MG CAPSULE PO PRN (22:49)
--- NOTE | 2016-05-31 22:49 | NUR ---
PRN BENADRYL AND PRN VISTARIL PO ADMINISTRATION Patient c/o insomnia and increased anxiety. Patient's assessed. VS WNL. PRN Benadryl PO and PRN Vistaril PO discussed with patient. Patient educated for actions, adverse reactions, and side effects of Benadryl and Vistaril. Patient returned his knowledge back by verbalizing understanding. PRN Benadryl PO and PRN Vistaril PO administrated as ordered with full glass of water. Patient tolerated well. All needs met. Safety measures in the place by hospital policy: call light within reach, bed in the lowest position and locked, bed rails up x2. Will re-evaluating patient in 1 hour.
--- NOTE | 2016-05-31 23:49 | NUR ---
REASSESSMENT Patient is sleeping. Breathing is even and unlabored. RR:15. PRN Benadryl PO and PRN Vistaril PO were effective.Safety measures on the place by hospital protocol:Call light within reach, bed in the lowest position and locked, bed rails up x2.Will continue to monitor closely.
[2016-06-01] VITALS: BP 135/89
[2016-06-01] MEDS: QUETIAPINE FUMARATE 25 MG TABLET PO PRN (02:19)
--- NOTE | 2016-06-01 02:19 | NUR ---
PRN SEROQUEL ADMINISTRATION Patient woke up and was crying. Patient's assessed. CIWA 5. Patient presented with mild anxiety, agitation, nervousness, tremors that can felt, sweating. VS WNL. PRN Seroquel PO discussed with patient. Patient educated for actions, adverse reactions, and side effects of Seroquel. Patient returned his knowledge back by verbalizing understanding. PRN Benadryl was administrated as ordered with full glass of water. Patient tolerated well. All needs met. Safety measures in the place by hospital policy: call light within reach, bed in the lowest position and locked, bed rails up x2. Will re-evaluating patient in 1 hour.
--- NOTE | 2016-06-01 03:19 | NUR ---
PRN REASSESSMENT Patient is asleep in bed with no signs of discomfort/distress or anxiety noted. RR:14. Breathing is unlabored and even. PRN Seroquel PO was effective. Safety measures on the place by hospital protocol: Call light within reach, bed in the lowest position and locked, bed rails up x2. Will continue to monitor closely.
[2016-06-01 04:00] VITALS: BP 128/82
--- NOTE | 2016-06-01 07:28 | NUR ---
END OF SHIFT Patient endorsed to day shift nurse. Report given. Patient is a 51 years old female admitted to [facility] on 05/27/16 for Benzo/Alcohol/Adderal/Marijuana Dependence, placed on 5 day Ativan taper started on 05/28/16/. NKA, Full Code, Vegan Diet, Fall and Seizures Precautions. Patient denied history of Seizures. Patient denied HI/SI. CIWA decreased from 8 on 05/31/16 at 20:00 to 5 on 06/01/16 at 04:00. Patient presented with mild anxiety, agitation, nervousness, tremors that can felt, sweating. VSWNL. Skin is warm and moist by touch: dry scabs on the Left Lower Leg. PRN Benadryl PO; PRN Vistaril, and Seroquel PO were effective. Patient slept 5 hours; Intake 1493 ml; Voided x 4; Stool x1. Patient remained compliant with medication, diet regime, and treatment plan. Safety measures on the place by hospital protocol: Call light within reach, bed in the lowest position and locked, bed rails up x2. Addendum: 06/01/16 at 0729 by JJ RIDDLE RN Adderall
--- NOTE | 2016-06-01 07:35 | NUR ---
START OF SHIFT NOTE Pt is a 51 yr old female, AA&Ox3. Pt was admitted on 05/27/16 for ETOH Dependence and is on 5 day Ativan taper. Pt is full code, Vegan diet and NKA. Pt reports of PMH of Anxiety, Depression, Gastric bypass and right arm fx. Pt received Benadryl PRN, Vistaril PRN, and Seroquel PRN during the night. Medication was effective. Pt slept for 5 hrs. Last COWS score was 5 at 0400. Pt is currently in bed resting with respirations even and unlabored. No acute distress noted. Skin is intact, warm and dry to touch. Fine tremor are seen. Pt denies any n/v. Pt is c/o generalized pain 06/05. Encouraged increase fluid intake. Will f/u will eMAR. Pt is on fall and seizure precautions. Safety precautions observed. Call light is within reach.
[2016-06-01 08:05] VITALS: BP 138/97
[2016-06-01 08:12] LABS: PROLACTIN 5.6 ng/mL (4.8-23.3); T3 TOTAL 114 ng/dL (71-180)
[2016-06-01] MEDS ORDERED: LORAZEPAM 1 MG TABLET PO SCH (09:00)
[2016-06-01] MEDS: ESCITALOPRAM OXALATE 10 MG TABLET PO SCH (09:29)
[2016-06-01] MEDS: FERROUS SULFATE 325 MG TABEC PO SCH ×2 (09:29→21:24)
[2016-06-01] MEDS: THIAMINE HCL 100 MG TABLET PO SCH (09:30)
[2016-06-01] MEDS: FOLIC ACID 1 MG TABLET PO SCH (09:30)
[2016-06-01] MEDS: GABAPENTIN 300 MG CAPSULE PO SCH ×3 (09:30→21:22)
[2016-06-01] MEDS: MULTIVITAMINS,THERAPEUTIC TABLET PO SCH (09:30)
[2016-06-01] MEDS: DOCUSATE SODIUM 250 MG CAPSULE PO SCH (09:30)
[2016-06-01] MEDS: QUETIAPINE FUMARATE 25 MG TABLET PO SCH ×3 (09:30→16:58)
[2016-06-01] MEDS: ASCORBIC ACID 250 MG TABLET PO SCH ×2 (09:30→21:24)
[2016-06-01] MEDS: IBUPROFEN 400 MG TABLET PO PRN (09:39)
--- NOTE | 2016-06-01 09:39 | NUR ---
MOTRIN PRN GIVEN Pt c/o headache 06/05. Motrin 400mg PO PRN was given as ordered. Medication so well. encouraged increase fluid intake.
--- NOTE | 2016-06-01 10:39 | NUR ---
PRN RE-ASSESSMENT Motrin PRN was effective. Pt denies any headache at this time. Encouraged increase fluid intake. will continue to monitor.
[2016-06-01 12:00] VITALS: BP 146/84
[2016-06-01 13:08] LABS: VIT D, 25-HYDROXY 34.7 ng/mL (30.0-100.0)
[2016-06-01 15:20] LABS: *AMPHETAMINE, URINE NEGATIVE (NEGATIVE); *BARBITURATE, URINE NEGATIVE (NEGATIVE); *CANNABINOID, URINE POSITIVE (NEGATIVE); *COCCAINE, URINE NEGATIVE (NEGATIVE); *OPIATE, URINE NEGATIVE (NEGATIVE); *PHENCYCLIDINE SCREEN,URINE NEGATIVE (NEGATIVE)
[2016-06-01] MEDS: HYDROXYZINE PAMOATE 25 MG CAPSULE PO PRN (15:32)
--- NOTE | 2016-06-01 15:32 | NUR ---
VISTARIL PRN GIVEN Pt c/o increase anxiety and requested for Vistaril. Vistaril 50mg PO PRN was given and so well. Encouraged increase fluid intake. Will continue to monitor.
[2016-06-01 16:00] VITALS: BP 122/83
--- NOTE | 2016-06-01 16:32 | NUR ---
PRN RE-ASSESSMENT Vistaril 50mg PO PRN was effective. No anxiety or agitation is observed. Pt is in bed sleeping with respirations even and unlabored. No acute distress noted. safety precautions observed. Will continue to monitor.
--- NOTE | 2016-06-01 18:56 | NUR ---
END OF SHIFT Pt is a 51 yr old female, AA&Ox3. Pt was admitted on 05/27/16 for ETOH Dependence and completed Ativan taper as ordered. Medication so well. Pt has been cooperative with plan of care and attended group session. Pt continues to complain of anxiety. Skin is intact, warm and dry to touch. Pt received Vistaril PRN at 1532 for Anxiety. Medication was effective. Pt c/o headache in the morning. Motrin 400mg PRN was given at 0939. Medication was effective. Encouraged increase fluid intake. Pt denies any n/v. No tremors seen or felt. Pt is to be discharged tomorrow to [facility]. Urine Drug Screen is complete. Last CIWA score was 2 at 1600. Pt is on fall and seizure precautions. Safety precautions observed. Call light is within reach.
--- NOTE | 2016-06-01 19:55 | NUR ---
Start of Shift Note: Report received from day shift nurse. Pt is a 51 yo female admitted on 05/27/16 for medically-supervised withdrawal from ETOH. Pt reports drinking 375-750mL vodka daily; Pt also reports taking 0.25mg Xanax occasionally, 20mg Adderall daily for 5 years, and smoking marijuana occasionally. Pt has completed a 4-day Ativan taper and is to discharge tomorrow. Last day shift CIWA=2. Pt is on a vegan diet. Pt reports nkda/nkfa. Pt reports med hx: gastric bypass, right arm fx, depression, anxiety. Pt is currently in group. Will continue to monitor.
[2016-06-01 20:00] VITALS: BP 148/89
[2016-06-01] MEDS ORDERED: QUETIAPINE FUMARATE 25 MG TABLET PO SCH (21:00)
[2016-06-01] MEDS: diphenhydrAMINE 50 MG CAPSULE PO PRN (21:23)
--- NOTE | 2016-06-01 21:23 | NUR ---
PRN Clonidine and PRN Benadryl: Pt c/o increased anxiety. Administered PRN Clonidine as ordered. Pt c/o inability to sleep. Administered PRN Benadryl as ordered. Will continue to monitor.
[2016-06-01] MEDS: CLONIDINE HCL 0.1 MG TABLET PO PRN (21:24)
[2016-06-01] MEDS ORDERED: HYDR-3895 PO (22:19)
[2016-06-01] MEDS ORDERED: FERR325T28 PO (22:19)
[2016-06-01] MEDS ORDERED: Gabapentin PO (22:19)
[2016-06-01] MEDS ORDERED: DIPH50CA37 PO (22:19)
[2016-06-01] MEDS ORDERED: ASCO250T5 PO (22:19)
[2016-06-01] MEDS ORDERED: Docusate Sodium PO (22:19)
[2016-06-01] MEDS ORDERED: QUET25TA PO ×2 (22:19)
[2016-06-01] MEDS ORDERED: ESCI10TA PO (22:19)
--- NOTE | 2016-06-01 22:30 | NUR ---
Reassessment: Pt reports relief of anxiety with PRN Clonidine administration. Medication effective.
[2016-06-02] VITALS: BP 142/88
[2016-06-02] MEDS: HYDROXYZINE PAMOATE 25 MG CAPSULE PO PRN (00:32)
[2016-06-02] MEDS: QUETIAPINE FUMARATE 25 MG TABLET PO PRN (00:32)
--- NOTE | 2016-06-02 00:32 | NUR ---
PRN's Vistaril, Seroquel, and Maalox: Pt c/o anxiety. Administered PRN Vistaril as ordered. Pt c/o agitation. Administered PRN Seroquel as ordered. Pt c/o heartburn. Administered PRN Maalox as ordered. Pt educated on risks/benefits of medications. Will continue to monitor for effectiveness.
[2016-06-02 01:15] LABS: *THYROGLOBULIN <1.0 IU/mL (0.0-0.9)
--- NOTE | 2016-06-02 01:30 | NUR ---
Reassessment: Pt is in bed with eyes closed. Respirations are even and unlabored. No s/s of acute distress noted. PRN's Benadryl, Vistaril, Seroquel, and Maalox effective. Will continue to monitor.
[2016-06-02 04:00] VITALS: BP 117/81
--- NOTE | 2016-06-02 07:28 | NUR ---
End of Shift Note: Pt is a 51 yo female admitted to [facility] on 05/27/16 for medically-supervised withdrawal from ETOH. Pt reports drinking 375-750mL vodka daily; Pt also reports taking 0.25mg Xanax occasionally, 20mg Adderall daily for 5 years, and smoking marijuana occasionally. Pt has completed a 4-day Ativan taper and is to discharge today. Scheduled medication regime managed mild s/s of withdrawal, in addition to PRN Clonidine and Vistaril for anxiety, and PRN Seroquel for agitation. Last CIWA was 3 at 04:00. PRN Maalox was given for heartburn and PRN Benadryl was given for insomnia. V/S stable throughout shift. Total fluid intake this shift: 1475 ml; output: urine x 3 and BM x 0. Pt currently in bed and slept 5 hours this shift. Pt endorsed to day shift nurse.
--- NOTE | 2016-06-02 07:49 | NUR ---
BEGINNING OF SHIFT Patient endorsement report received from front worker nurse, all pertinent information discussed. patient is a 51 year old female, full code, regular diet with no known allergies. Patient admitted on 05/27/2016, with admitting Dx: etoh/BZO dependence. Patient with past medical history of: depression, anxiety, gastric by pass surgery and right arm fracture with multiple surgeries. Reports substance use of: [id number] of vodka daily for 1 month, Xanax 0.25mg occasionally, Adderall 20mg daily for 5 years, marijuana occasionally 2 joints with substance use history of 11 years. Patients skin is intact. As per front worker report patient received PRN: clonidine, Maalox, Seroquel, Vistaril and Benadryl, medications effective as per front worker, patient slept for 5 hours. Patient completed 4 day Ativan taper and is scheduled for discharge today. Patient received awake, alert and oriented x4, patient educated regarding plan of care for the day, and will provide education regarding discharge. safety measures in place. call light with in reach, will continue to monitor closely.
[2016-06-02 09:02] VITALS: BP 130/91
[2016-06-02] MEDS: DOCUSATE SODIUM 250 MG CAPSULE PO SCH (09:04)
[2016-06-02] MEDS: QUETIAPINE FUMARATE 25 MG TABLET PO SCH (09:04)
[2016-06-02] MEDS: ASCORBIC ACID 250 MG TABLET PO SCH (09:04)
[2016-06-02] MEDS: FERROUS SULFATE 325 MG TABEC PO SCH (09:04)
[2016-06-02] MEDS: ESCITALOPRAM OXALATE 10 MG TABLET PO SCH (09:04)
[2016-06-02] MEDS: THIAMINE HCL 100 MG TABLET PO SCH (09:04)
[2016-06-02] MEDS: GABAPENTIN 300 MG CAPSULE PO SCH (09:04)
[2016-06-02] MEDS: FOLIC ACID 1 MG TABLET PO SCH (09:05)
[2016-06-02] MEDS: MULTIVITAMINS,THERAPEUTIC TABLET PO SCH (09:05)
--- NOTE | 2016-06-02 09:48 | NUR ---
DISCHARGE Patient discharged at 0948, prior to discharge educated regarding all discharge instructions and education with good verbal understanding. Patient noted self motivated towards sobriety. Prescriptions, and discharge instructions were placed in patients personal duffel bag, vital signs were stable prior to discharge, patient with no s/sx of withdrawal. off the unit at 0948 in stable condition.
[2016-06-05 08:09] LABS: *AMPHETAMINE Positive (.); *BENZODIAZEPINES Negative (Cutoff=300); *CANNABINOID (THC) Positive (.); *METHAMPHETAMINE Negative (Cutoff=500)
== END 2016-06-02 09:48 | disposition other institution (70) | DRG 895 ==
LOC: SRC 21:52 → UNDOADMIN 21:52 → SRC 05-27 11:12
PROVIDERS: ADMIT Internal Medicine; ATTEND Internal Medicine
PROC: HZ2ZZZZ Detoxification Services for Substance Abuse Treatment (ICD-10-PCS; principal; 2016-05-27)
PROC: HZ31ZZZ Individual Counseling for Substance Abuse Treatment, Behavioral (ICD-10-PCS; 2016-05-30)
DX: F10.230 Alcohol dependence with withdrawal, uncomplicated (principal); E87.3 Alkalosis; F15.20 Other stimulant dependence, uncomplicated; Y90.9 Presence of alcohol in blood, level not specified; Z98.84 Bariatric surgery status; F17.210 Nicotine dependence, cigarettes, uncomplicated; F98.8 Other specified behavioral and emotional disorders with onset usually occurring in childhood and adolescence; F12.10 Cannabis abuse, uncomplicated; F32.9 Major depressive disorder, single episode, unspecified; F41.9 Anxiety disorder, unspecified; E83.51 Hypocalcemia; E88.09 Other disorders of plasma-protein metabolism, not elsewhere classified; F13.90 Sedative, hypnotic, or anxiolytic use, unspecified, uncomplicated; D50.9 Iron deficiency anemia, unspecified; E07.81 Sick-euthyroid syndrome; E86.0 Dehydration
CPT/HCPCS: 36415; 71010; 80307; 80324; 80346; 80349; 82306; 82330; 82746; 83550; 83690; 83735; 84100; 84146; 84443; 84480; 85025; 86580; 86592; 86705; 86803; 87340; 87806; 97001; A4663; G6040-TC; J3411; Q0162; Q0163